=== PATIENT | female | born 1980 | race Caucasian/White ===

== ENCOUNTER 2019-06-21 11:12 | Emergency (ER) | payer OTHER ==
--- NOTE | 2019-06-21 11:33 | EDM.PDOC ---
ED HPI GENERAL MEDICAL PROBLEM - General Chief Complaint: Laceration Stated Complaint: LACERATION R HAND Time Seen by Provider: 06/21/19 11:28 Source of Information: Reports: Patient History Limitations: Reports: No Limitations - History of Present Illness INITIAL COMMENTS - FREE TEXT/NARRATIVE: 39-year-old female who was walking in to work at the [employer] at approximately 11 AM and slipped on ice falling and catching herself her right hand and sustaining an injury to her right index finger. She did not hit her head. There was no loss of consciousness. She does have pain to the right index finger that she rates as a 6/10. It is sharp and stinging. She feels that the index finger is somewhat stiff. Bleeding has been controlled with direct pressure. There were no other injuries. She has good sensation to the right index finger. There are no other associated signs or symptoms. There are no other modifying factors. 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 Social & Family History - Tobacco Use Smoking Status *Q: Former Smoker (Quit 2 years ago) - Living Situation & Occupation Living situation: Reports: Occupation: Employed (Works at [employer]) ED ROS GENERAL - Review of Systems Review Of Systems: See Below Constitutional: Reports: No Symptoms HEENT: Reports: No Symptoms Respiratory: Reports: No Symptoms Cardiovascular: Reports: No Symptoms Endocrine: Reports: No Symptoms GI/Abdominal: Reports: No Symptoms : Reports: No Symptoms Musculoskeletal: Reports: Other (Right index finger injury) Skin: Reports: Wound (Laceration to right index finger) Neurological: Reports: No Symptoms Hematologic/Lymphatic: Reports: No Symptoms Immunologic: Reports: Other (It has been greater than 5 years since her last tetanus immunization) ED EXAM, SKIN/RASH Exam: See Below Exam Limited By: No Limitations General Appearance: Alert, WD/WN, Mild Distress Eye Exam: Bilateral Eye: EOMI, Normal Inspection Ears: Normal External Exam, Hearing Grossly Normal Nose: Normal Inspection, Normal Mucosa, No Blood Throat/Mouth: Normal Inspection, Normal Oropharynx, Normal Voice, No Airway Compromise Head: Atraumatic, Normocephalic Neck: Normal Inspection, Supple, Non-Tender, Full Range of Motion Respiratory/Chest: No Respiratory Distress, Lungs Clear, Normal Breath Sounds, No Accessory Muscle Use, Chest Non-Tender Cardiovascular: Normal Peripheral Pulses, Regular Rate, Rhythm, No Murmur Peripheral Pulses: 2+: Radial (L), Radial (R) GI/Abdominal: Normal Bowel Sounds, Soft, Non-Tender, No Mass Back Exam: Normal Inspection Extremities: Normal Range of Motion, No Pedal Edema, Normal Capillary Refill, Other (Full range of motion in right index finger with full flexion and intact flexion of both profundus and superficialis tendon.) Neurological: Alert, Oriented, CN II-XII Intact, Normal Cognition, No Motor/ Sensory Deficits Skin: Warm, Dry, Normal Color, No Rash Location, Skin: Upper Extremity, Right (Volar right index finger at the PIP joint area), Other (Laceration is 3.5 cm in length) Characteristics: Linear ED SKIN PROCEDURES - Laceration/Wound Repair Right Middle Anterior Digit - 2nd (Index) Appearance: Subcutaneous (Tendon visualized at the depth of the wound but no injury to tendon) Distal NVT: Neuro & Vascular Intact Anesthetic Type: Local Local Anesthesia - Lidocaine (Xylocaine): 1% Plain Local Anesthetic Volume: 5cc (There was good anesthesia no complications.) Skin Prep: Saline Saline Irrigation (cc's): 500 Exploration/Debridement/Repair: Wound Explored, No Foreign Material Found Closed with: Sutures Lac/Wound length In cm: 3.5 Suture Size: 4-0 # of Sutures: 5 Suture Type: Prolene, Interrupted, Simple, Mattress Sterile Dressing Applied: Nurse Tetanus Status Addressed: Yes (Patient was given a Tdap immunization) Complications: No Course - Vital Signs Last Recorded V/S: Last Vital Signs Temp 36.6 C 06/21/19 11:15 Pulse 96 06/21/19 11:15 Resp 18 06/21/19 11:15 BP 143/102 H 06/21/19 11:15 Pulse Ox 98 06/21/19 11:15 - Orders/Labs/Meds Orders: Active Orders 24 hr Category Date Time Status Vaccines to be Administered [RC] PER UNIT ROUTINE Care 06/21/19 11:34 Active Meds: Medications Discontinued Medications Generic Name Dose Route Start Last Admin Trade Name Christie PRN Reason Stop Dose Admin Diphtheria/Tetanus/Acell Pertussis 0.5 ml 06/21/19 11:33 Adacel IM 06/21/19 11:34 .ONCE ONE - Re-Assessments/Exams Free Text/Narrative Re-Assessment/Exam: 06/21/19 12:10: Patient with laceration to right volar index finger at the PIP joint area. The laceration went down to the level of the tendon but there was no tendon injury. The wound was repaired and the patient's tetanus immunization status was brought up-to-date. Precautions and reasons for return to the emergency department were discussed with the patient prior to discharge. Departure - Departure Time of Disposition: 12:15 Disposition: Home, Self-Care 01 Condition: Good (Improved) Clinical Impression: Laceration of right index finger w/o foreign body w/o damage to nail Qualifiers: Encounter type: initial encounter Qualified Code(s): S61.210A - Laceration without foreign body of right index finger without damage to nail, initial encounter Contusion of right index finger without damage to nail Qualifiers: Encounter type: initial encounter Qualified Code(s): S60.021A - Contusion of right index finger without damage to nail, initial encounter - Discharge Information Instructions: Contusion, [id number], Laceration Care, Adult, [id number], Stitches, Idalia, or Adhesive Wound Closure, [id number] Referrals: Lisa Powell NP [Primary Care Provider] - Forms: ED Department Discharge Additional Instructions: Do not get the wound wet for 3 days. After 3 days, you may get the wound wet but do not immerse the wound in water until the sutures are out. Suture removal in 10 days. You may go to the walk-in clinic or to your primary provider's clinic for suture removal. Avoid strenuous use with your right hand for the next 2 weeks and be careful using your right hand for the next month. You may take ibuprofen and Tylenol as needed for pain. You should elevate the right hand and apply ice packs intermittently to the area for the next day or 2. Back to the emergency department for marked increase in pain, redness, increased swelling, any signs of infection or any other concerning sign or symptom. You were given a Tdap immunization today to bring your tetanus immunization status up-to-date. - My Orders Last 24 Hours: My Active Orders 06/21/19 11:34 Vaccines to be Administered [RC] PER UNIT ROUTINE - Assessment/Plan Last 24 Hours: My Active Orders 06/21/19 11:34 Vaccines to be Administered [RC] PER UNIT ROUTINE
[2019-06-21 11:38] VITALS: BP 143/102; PULSE 96
[2019-06-21] MEDS: Diphtheria,Pertussis(Acell),Tetanus Vaccine 0.5 ML SDV IM ONE (12:30)
== END 2019-06-21 12:36 | disposition home or self-care (01) ==
LOC: FB.ED 11:12
DX: S61.210A Laceration without foreign body of right index finger without damage to nail, initial encounter (principal); Z23 Encounter for immunization; W00.0XXA Fall on same level due to ice and snow, initial encounter
CPT/HCPCS: 12002; 90471; 90715; 99283; J2001